=== PATIENT | female | born 1990 | race Caucasian/White ===

== ENCOUNTER 2019-10-28 16:41 | Observation (INO) | payer OTHER ==
[2019-10-28 18:38] LABS: ABS Eosinophils 0.1 10^3/ul (0-0.6); ABS Lymphocytes 1.4 10^3/ul (1.0-4.8); ABS Neutrophils 12.3 10^3/ul (1.5-7.7); Eosinophil % 0.5 %; Hematocrit 37 % (35-47); Hemoglobin 12.5 g/dL (12.0-16.0); Lymphocyte % 9.1 %; Mean Corpuscular HGB Conc 34 g/dL (31-36); Mean Corpuscular Hemoglobin 31 pg (27-31); Mean Corpuscular Volume 91 fL (80-97); Mean Platelet Volume 9.1 fL (7.4-10.4); Nucleated Red Blood Cells % 0.1; Platelet Count 180 10^3/uL (150-450); Red Blood Count 4.04 10^6 /uL (3.70-4.87); Red Cell Distribution Width 14 % (10-15); White Blood Count 14.8 10^3/uL (3.5-10.8)
[2019-10-28 18:55] LABS: ALT 10 U/L (7-52); AST 15 U/L (13-39); Albumin 3.6 g/dL (3.2-5.2); Albumin/Globulin Ratio 1.1 (1-3); Alkaline Phosphatase 55 U/L (34-104); Anion Gap 7 mmol/L (2-11); BUN/Creatinine Ratio 7.9 (8-20); Blood Urea Nitrogen 5 mg/dL (6-24); C Reactive Protein 22.51 mg/L (<8.01); CO2 Carbon Dioxide 25 mmol/L (22-32); Calcium 9.4 mg/dL (8.6-10.3); Chloride 104 mmol/L (101-111); EGFR African American 135.2 (>60); EGFR Non-African American 111.7 (>60); Globulin 3.3 g/dL (2-4); Glucose 92 mg/dL (70-100); Potassium 3.9 mmol/L (3.5-5.0); Sodium 136 mmol/L (135-145); Total Protein 6.9 g/dL (6.4-8.9)
--- NOTE | 2019-10-28 22:10 | ED ---
GI/ HPI - HPI Summary HPI Summary: Patient is a 29 y/o F who is 21 weeks presenting to [facility] with complaints of abdominal pain, nausea, and decreased appetite. She states that the Sx first onset "lightly" in the evening of 10/27/19. Sx worsened today, , but patient currently states that her Sx have improved in the past few hours. Abdominal pain was initially diffuse but has since localized to her RLQ. Vaginal bleeding is denied. On triage, pain is rated 6/10, nothing is noted to aggravate/alleviate Sx. She states that she has had previous abdominal cramping and one episode of vomiting during her , current Sx are noted to be dissimilar to these episodes. This is her first . Dr. Connor is OB. Past abdominal surgeries are denied. Patient's partner is present in the room. Home medications and allergies are reviewed. - History of Current Complaint Chief Complaint: EDAbdPain Time Seen by Provider: 10/28/19 22:05 Stated Complaint: 21 WKS PREG/ABD PAIN/NAUSEA PER PT Hx Obtained From: Patient Onset/Duration: Started Days Ago, Still Present Timing: Constant, Lasting Days Severity: Moderate Current Severity: Moderate Pain Intensity: 6 Location of Pain: RLQ Associated Signs and Symptoms: Positive: Nausea, Change in Appetite, Abdominal Pain Additional Signs & Symptoms: Negative: Vaginal Bleeding Aggravating Factor(s): Nothing Alleviating Factor(s): Nothing - Allergy/Home Medications Allergies/Adverse Reactions: Allergies Allergy/AdvReac Type Severity Reaction Status Date / Time No Known Allergies Allergy Verified 10/28/19 16:50 Home Medications: Home Medications NK [No Home Medications Reported] 10/28/19 [History Confirmed 10/28/19] PMH/Surg Hx/FS Hx/Imm Hx Sensory History: Denies: Hx Legally Blind, Hx Deafness Opthamlomology History: Denies: Hx Legally Blind EENT History: Denies: Hx Deafness Infectious Disease History: No Infectious Disease History: Denies: Traveled Outside the [place] in Last 30 Days - Family History Known Family History: Negative: Diabetes - Social History Alcohol Use: None Substance Use Type: Reports: None Smoking Status (MU): Never Smoked Tobacco Review of Systems Gastrointestinal: Other - pos - decreased appetite Positive: Abdominal Pain, Nausea Genitourinary: Other - neg - vaginal bleeding All Other Systems Reviewed And Are Negative: Yes Physical Exam - Summary Physical Exam Summary: Appearance: Well-appearing, Well-nourished, lying in bed comfortably Skin: Warm, dry, no obvious rash Eyes: sclera anicteric, no conjunctival pallor ENT: mucous membranes moist, pharynx appears normal Neck: Supple, nontender Respiratory: Clear to auscultation, no signs of respiratory distress Cardiovascular: Normal S1, S2. No murmurs. Normal distal pulses in tibial and radial bilaterally. Abdomen: Gravid with fundus just above the umbilicus, RLQ tenderness without guarding or rebound Musculoskeletal: Normal, Strength/ROM Intact Neurological: A&Ox3, awake and alert, mentation is normal, speech is fluent and appropriate Psychiatric: affect is normal, does not appear anxious or depressed Triage Information Reviewed: Yes Vital Signs On Initial Exam: Initial Vitals Temp Pulse Resp BP Pulse Ox 98.3 F 81 16 111/72 99 10/28/19 16:46 10/28/19 16:46 10/28/19 16:46 10/28/19 16:46 10/28/19 16:46 Vital Signs Reviewed: Yes Procedures - Sedation Patient Received Moderate/Deep Sedation with Procedure: No Diagnostics - Vital Signs Vital Signs Temp Pulse Resp BP Pulse Ox 10/28/19 19:48 96.1 F 70 18 107/70 100 10/28/19 18:13 98.8 F 77 16 122/80 100 10/28/19 16:46 98.3 F 81 16 111/72 99 - Laboratory Lab Results: Lab Results 10/28/19 10/28/19 Range/Units 18:21 18:21 WBC 14.8 H (3.5-10.8) 10^3/uL RBC 4.04 (3.70-4.87) 10^6 /uL Hgb 12.5 (12.0-16.0) g/dL Hct 37 (35-47) % MCV 91 (80-97) fL MCH 31 (27-31) pg MCHC 34 (31-36) g/dL RDW 14 (10-15) % Plt Count 180 (150-450) 10^3/uL MPV 9.1 (7.4-10.4) fL Neut % (Auto) 83.2 % Lymph % (Auto) 9.1 % [place] % (Auto) 7.0 % Eos % (Auto) 0.5 % Baso % (Auto) 0.2 % Absolute Neuts (auto) 12.3 H (1.5-7.7) 10^3/ul Absolute Lymphs (auto) 1.4 (1.0-4.8) 10^3/ul Absolute Monos (auto) 1.0 H (0-0.8) 10^3/ul Absolute Eos (auto) 0.1 (0-0.6) 10^3/ul Absolute Basos (auto) 0.0 (0-0.2) 10^3/ul Absolute Nucleated RBC 0.0 10^3/ul Nucleated RBC % 0.1 Sodium 136 (135-145) mmol/L Potassium 3.9 (3.5-5.0) mmol/L Chloride 104 (101-111) mmol/L Carbon Dioxide 25 (22-32) mmol/L Anion Gap 7 (2-11) mmol/L BUN 5 L (6-24) mg/dL Creatinine 0.63 (0.51-0.95) mg/dL Est GFR ( Amer) 135.2 (>60) Est GFR (Non-Af Amer) 111.7 (>60) BUN/Creatinine Ratio 7.9 L (8-20) Glucose 92 (70-100) mg/dL Calcium 9.4 (8.6-10.3) mg/dL Total Bilirubin 0.40 (0.2-1.0) mg/dL AST 15 (13-39) U/L ALT 10 (7-52) U/L Alkaline Phosphatase 55 (34-104) U/L C-Reactive Protein 22.51 H (<8.01) mg/L Total Protein 6.9 (6.4-8.9) g/dL Albumin 3.6 (3.2-5.2) g/dL Globulin 3.3 (2-4) g/dL Albumin/Globulin Ratio 1.1 (1-3) Lipase < 10 L (11.0-82.0) U/L Result Diagrams: 10/28/19 18:21 10/28/19 18:21 Lab Statement: Any lab studies that have been ordered have been reviewed, and results considered in the medical decision making process. - Ultrasound APPENDIX US Ultrasound Interpretation Completed By: Radiologist Summary of Ultrasound Findings: IMPRESSION: Findings consistent with inflamed appendix/acute appendicitis in right lower. quadrant. No periappendiceal fluid identified. THIS REPORT WAS REVIEWED BY DR. JUAREZ. Re-Evaluation - Re-Evaluation First Eval Re-Evaluation Time: 03:30 Comment: 0330 - Patient had complaints of pain, morphine 4 mg IV administered. GIGU Course/Dx - Course Course Of Treatment: Patient is a 29 y/o F who is 21 weeks presenting to [facility] with complaints of abdominal pain, nausea, and decreased appetite. She states that the Sx first onset "lightly" in the evening of 10/27/19. Sx worsened today, 10/28/19, but patient currently states that her Sx have improved in the past few hours. Abdominal pain was initially diffuse but has since localized to her RLQ. Vaginal bleeding is denied. Past abdominal surgeries are denied. Abdomen: Gravid with fundus just above the umbilicus, RLQ tenderness without guarding or rebound. 2212 - Patient's case was discussed with Dr. Walker, Dr. Walker recommends US. Surgery consult to be done. 2229 - Patient's case was discussed with Dr. Elaine. He agrees with US, defers to Dr. Walker's opinion on this case. Bloodwork obtained, abnormal values include WBC 14.8, absolute neuts 12.3, absolute monos 1, BUN 5, BUN/creatinine ratio 7.9, CRP 22.51, lipase < 10. UA showed 1+ ketones, trace leukocyte esterase, trace WBC and RBC, squamous epith cells present, 1+ bacteria. APPENDIX US IMPRESSION: Findings consistent with inflamed appendix/acute appendicitis in right lower. quadrant. No periappendiceal fluid identified. 2347 - Dr. Elaine prepping for surgery, nurse will let him know US shows appendicitis. 2350 - Dr. Walker was reached, she refers to Dr. Elaine' opinion. Patient started on Piperacillin sod/tazobactam sod 3.375 gm in 100 mls @ 200 mls/hr. She was given fluids, zofran 4 mg IV and morphine 4 mg IV as well. 0115 - Dr. Elaine in ED to evaluate the patient. He will not take the patient for surgery until the morning. He notes that OB will need to evaluate the patient before surgery. 0221 - Dr. Walker recommends Pelvic US. 0330 - Patient had complaints of pain, morphine 4 mg IV administered. Patient is signed out to Dr. Chance at 0700 10/29/19 shift change pending pelvic US. - Diagnoses Provider Diagnoses: Acute appendicitis complicating - Physician Notifications Discussed Care Of Patient With: Doris Walker Time Discussed With Above Provider: 22:12 Instructed by Provider To: Other - 2211 - Patient's case was discussed with Dr. Walker, Dr. Walker recommends US. Surgery consult to be done. 2229 - Patient's case was discussed with Dr. Elaine. He agrees with US. 2347 - Dr. Elaine prepping for surgery, nurse will let him know US shows appendicitis. 2350 - Dr. Walker was reached, she refers to Dr. Elaine' opinion. 0115 - Dr. Elaine in ED to evaluate the patient. He will not take the patient for surgery until the morning. He notes that OB will need to evaluate the patient before surgery. 0221 - Dr. Walker recommends Pelvic US. Discharge ED - Sign-Out/Discharge Documenting (check all that apply): Sign-Out Patient Signing out patient TO: Tuan Chance - Discharge Plan Condition: Stable Disposition: ADMITTED TO [facility] - Billing Disposition and Condition Condition: STABLE Disposition: Admitted to [facility] - Attestation Statements Document Initiated by Elvis: Yes Documenting Scribe: MYCHAL RIBEIRO Provider For Whom Elvis is Documenting (Include Credential): ROLANDO JUAREZ MD Scribe Attestation: IMYCHAL, scribed for ROLANDO JUAREZ MD on 10/30/19 at 0553. Scribe Documentation Reviewed: Yes Provider Attestation: The documentation as recorded by the MYCHAL beckham accurately reflects the service I personally performed and the decisions made by me, ROLANDO JUAREZ MD Status of Scribe Document: Viewed
[2019-10-28 23:16] LABS: Urine Appearance Clear; Urine Bilirubin Negative (Negative); Urine Blood Negative (Negative); Urine Color Yellow; Urine Glucose Negative (Negative); Urine Ketones 1+ (Negative); Urine Nitrite Negative (Negative); Urine Protein Negative (Negative); Urine Specific Gravity 1.004 (1.010-1.030); Urine Urobilinogen Negative (Negative)
[2019-10-28 23:20] LABS: Urine Bacteria 1+ (Absent); Urine Red Blood Cell Trace(0-2/hpf) (Absent); Urine Squamous Epithelial Cell Present (Absent); Urine White Blood Cell Trace(0-5/hpf) (Absent)
[2019-10-28] MEDS ORDERED: Piperacillin/Tazobac ADVAN(*) 3.375 GM in NS 0.9% 100 ML* 100 ML IVPB ONE (23:54)
[2019-10-28] MEDS ORDERED: NS 0.9% 1000 ML** 2,000 ML IV ONE (23:58)
[2019-10-28] MEDS ORDERED: Morphine 4 MG/ML VIAL (1 ml) 4 MG/ML VIAL IV ONE (23:58)
[2019-10-29] MEDS ORDERED: Ondansetron INJ* 2 MG/ML VIAL ONE (00:25)
[2019-10-29] MEDS ORDERED: Ondansetron INJ* 2 MG/ML VIAL IV ONE ×2 (00:26)
[2019-10-29] MEDS ORDERED: Morphine 4 MG/ML VIAL (1 ml) 4 MG/ML VIAL IV PRN (03:15)
--- NOTE | 2019-10-29 03:59 | CONS ---
CC: Frederick Connor MD * CONSULTATION REPORT: DATE OF CONSULT: 10/29/19 REASON FOR CONSULTATION: Acute appendicitis. HISTORY OF PRESENT ILLNESS: This is a 29-year-old female, 21 weeks , who presented to the emergency room with a day's history of abdominal pain with some localization to the right side. She denied diarrhea. She had some nausea but did not vomit. She had no fevers or chills. She slept poorly last night but did get up and go to work today. She left work because her pain was persisting and more severe. She called her keno writer / runner's office and was directed to the emergency room. In the emergency room, she was evaluated by staff. She was noted to have a mildly elevated white blood cell count of 14.8 and her C-reactive protein was mildly elevated at 22.5. She underwent an ultrasound, which was read as consistent with inflamed appendix/acute appendicitis in the right lower quadrant with no periappendiceal fluid identified. Surgical consult was requested. Prior to evaluating the patient, she did receive morphine. The patient reports that at this time she has no pain. PAST MEDICAL HISTORY: Thyroid nodule. PAST SURGICAL HISTORY: Myringotomy tubes as a child. MEDICATIONS: vitamins. ALLERGIES: None. FAMILY HISTORY: Reviewed and was noncontributory. SOCIAL HISTORY: Denies tobacco use or alcohol or drug use. She is . 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 REVIEW OF SYSTEMS: A 14-point review of systems was completed and significant for the above mentioned findings. Otherwise was negative. PHYSICAL EXAMINATION: Afebrile with a temperature of 98.3 on arrival. T-max is 98.8, pulse 66, respirations 17, blood pressure 98/59, O2 saturation 97% to 99% on room air. Head is normocephalic and atraumatic. Sclerae anicteric. Her mucous membranes are moist. She has no otorrhea or rhinorrhea. Her abdomen is without scars and it is nondistended. There is gravid uterus. There is mild tenderness in the right lower quadrant with no rebound or guarding. LABORATORY DATA: Laboratory data was reviewed, significant findings as above. IMAGING: Ultrasound images were reviewed. IMPRESSION: A 29-year-old female, 21 weeks with signs and symptoms and ultrasound concerning for possible acute appendicitis. At present, she is pain- free and asymptomatic. PLAN/RECOMMENDATIONS: I discussed the patient with Dr. Walker by phone. It is certainly possible that this represents an early appendicitis. I would want obstetric evaluation prior to deciding to bring her to the operating room. Pending this evaluation, she will receive antibiotics and IV fluids and will be kept n.p.o. I also discussed with the patient that surgical treatment of appendicitis typically can be managed laparoscopically; however, in patients this may not be possible. [id number]/[facility] #: [id number] [facility] HEALTHFatou
[2019-10-29] MEDS ORDERED: Piperacillin/Tazobac ADVAN(*) 3.375 GM in NS 0.9% 100 ML* 100 ML IVPB ONE (07:13)
--- NOTE | 2019-10-29 07:27 | ED ---
Progress - Progress Note Progress Note: The patient is a sign-out from Dr. Sancho Galan MD, to Dr. Tuan Chance MD, at change of shift at 0700 on 10/29/2019, pending Pelvis Ultrasound and disposition. ultrasound reveals single intrauterine gestation with a gestational age of 20 weeks 6 days with heart rate of [address] Webster from [facility] came to speak with the patient concerning need for surgery. He has cleared her for surgery, and the patient understands and agrees with the plan. Dr. Quick from surgery has spoken with the patient concerning the plan, and he is admitting the patient for surgery. - Results/Orders Results/Orders: Ultrasound Impression: Single intrauterine gestation with a gestational age of 20 weeks 6 days. heart activity is noted at 136 BPM. Limited survey. ED physician has reviewed this report. Re-Evaluation - Re-Evaluation First Eval Re-Evaluation Time: 07:35 Comment: Nurse Bella states that the patient is becoming hypotensive with sysolic reading in the 90s mmHg. We will administer 1L fluids. Course/Dx - Course Course Of Treatment: The patient is a sign-out from Dr. Sancho Galan MD, to Dr. Tuan Chance MD, at change of shift at 0700 on 10/29/2019, pending Pelvis Ultrasound and disposition. US Impression: Single intrauterine gestation with a gestational age of 20 weeks 6 days. heart activity is noted at [address] Webster from [facility] has cleared patient for surgery. Dr. Quick from surgery accepts the patient for admission for surgery. Patient understands and agrees with this plan. - Diagnoses Provider Diagnoses: Acute appendicitis complicating - Provider Notifications Discussed Care Of Patient With: Demetri Webster - [facility] Time Discussed With Above Provider: 07:30 Instructed by Provider To: Other - Dr. Webster spoke with the patient and has cleared her for surgery. Dr. Quick spoke with patient concerning the plan for surgery at 0900. Discharge ED - Sign-Out/Discharge Documenting (check all that apply): Patient Departure - Patient accepted for surgery by Dr. Quick., Receiving Sign-Out Receiving patient FROM: Sancho Galan - Patient is a sign-out from Dr. Sancho Galan MD, at 0700 on 10/29/2019, pending Pelvis Ultrasound and disposition. - Discharge Plan Condition: Stable Disposition: ADMITTED TO [facility] - Billing Disposition and Condition Condition: STABLE Disposition: Admitted to [facility] - Attestation Statements Document Initiated by Elvis: Yes Documenting Scribe: Tammi López Provider For Whom Elvis is Documenting (Include Credential): Dr. Tuan Chance MD Scribe Attestation: ITammi, scribed for Dr. Tuan Chance MD on 10/29/19 at 1851. Scribe Documentation Reviewed: Yes Provider Attestation: The documentation as recorded by the Tammi beckham accurately reflects the service I personally performed and the decisions made by me, Dr. Tuan Chance MD Status of Scribe Document: Viewed Procedures - Sedation Patient Received Moderate/Deep Sedation with Procedure: No
[2019-10-29] MEDS ORDERED: NS 0.9% 1000 ML** 1,000 ML IV ONE ×2 (07:40→10:13)
[2019-10-29] MEDS ORDERED: NS 0.9% 100 ML* 100 ML ONE (07:47)
--- NOTE | 2019-10-29 10:23 | PN ---
Progress Note - Progress Note Date of Service: 10/29/19 Note: 29 yo at 21 weeks with right sided abdominal pain/ NAUSEA AND ANOREXIA. Pt rpesented to Ed last night after not feeling well starting Sunday . It started with nausea and had progressed to right sided pain. No regular pain that comes and goes. No bleeding or leaking. Ultrasound of appendix in Er shows some changes consistent with appendicitis. Wbc elevated but within normal range for . Surgery evaluated and feel pt findings and presentation suspicious for appendicitis . U/s of is normal . I had a long discussion with pt and family regarding the pitfalls of diagnosis of appendicitis in . The risks of not diagnosing an appendicitis in are significant with potential for serious sequella . Discussed surgery risks are less barring any complications. Ct discussed and feel This carries longer term potential risks. Questions answered . I have discussed case with Dr Elaine and Dr Quick and they both agrees her case is suspicious for appendicitis. Based on this pt is scheduled to go to the OR this afternoon. She does not seem to be pending rupture so feel no need to expedite this case faster. She is 21 weeks so no particular need for efm . However would place toco if she describes regular contractions or has bleeding. I would check fhr pre and post operatively and observe a ltitle long than usual post operatively.This was discussed with Dr Quick and Dr Lyman.Call with any further questions. Marcio Webster MD
[2019-10-29] MEDS ORDERED: Famotidine IV* 10 MG/ML 2 ML (20 mg) IV ONE (11:47)
[2019-10-29] MEDS ORDERED: Buffered Lidocaine 1% SYRIN* 1 ML/SYRINGE INTRADERM ONE (11:47)
[2019-10-29] MEDS ORDERED: Ondansetron INJ* 2 MG/ML VIAL IV PRN ×2 (11:48→15:30)
[2019-10-29] MEDS ORDERED: Naloxone* 0.4 MG/ML 1 ML VIAL IV PRN (11:48)
[2019-10-29] MEDS ORDERED: Famotidine IV* 10 MG/ML 2 ML (20 mg) ONE (11:50)
[2019-10-29] MEDS ORDERED: Lactated Ringers 1000 ML Bag* 1,000 ML IV SCH (12:00)
[2019-10-29] MEDS ORDERED: Rocuronium* 10 MG/ML VIAL ONE (12:32)
[2019-10-29] MEDS ORDERED: KETAMINE HCL* 50 MG/ML 10 ML VIAL ONE (12:32)
[2019-10-29] MEDS ORDERED: fentaNYL* 50 MCG/ML 2 ML VIAL (100 MCG VIAL) ONE (12:32)
[2019-10-29] MEDS ORDERED: HYDROmorphone INJ* 0.5 MG/0.5 ML SYRINGE IV SLOW PU PRN (15:30)
[2019-10-29] MEDS ORDERED: oxyCODONE/Acetamin 5/325 MG* TAB PO PRN (15:30)
--- NOTE | 2019-10-29 15:30 | OP ---
Operative Report - Blank - Operative Report Date of Operation: 10/29/19 Note: OPERATIVE NOTE Pre-Operative Diagnosis:Acute appendicitis Post-Operative Diagnosis:Acute suppurative appendicitis Procedure:Laparoscopic appendectomy Surgeon: Aniceto Quick MD Fab[employer] And Material Cutter:RAOUL Haywood Anesthesia: Local with General with Kountze IVF:1 liter crystalloid EBL:min Specimen:appendix Drain: none Wound Class:3 Findings: Acute appendicitis, no perforation or abscess TO PACU
[2019-10-29] MEDS: fentaNYL* 50 MCG/ML 2 ML VIAL (100 MCG VIAL) IV PRN ×2 (15:46→16:10)
[2019-10-29] MEDS: NS 0.9% 1000 ML** 1,000 ML IV SCH (17:15)
[2019-10-29] MEDS: Piperacillin/Tazobactam VIAL*) 3.375 GM in NS 0.9% 100 ML* 100 ML IVPB SCH (17:15)
[2019-10-29] MEDS: Acetaminophen TAB* 325 MG PO PRN (20:20)
--- NOTE | 2019-10-29 23:42 | OP ---
CC: [facility]; Dr. Connor * DATE OF OPERATION: 10/29/19 - ROOM #331 DATE OF : 89 SURGEON: Juan Quick MD. FOOD AND BEVERAGE CHECKER: HARPER Koenig. ANESTHESIOLOGIST: Dr. Esparza. ANESTHESIA: Local with general. PRE-OP DIAGNOSIS: Acute appendicitis. POST-OP DIAGNOSIS: Acute suppurative appendicitis. OPERATIVE PROCEDURE: Laparoscopic appendectomy. ESTIMATED BLOOD LOSS: Minimal. WOUND CLASSIFICATION: III. IV FLUIDS: 1 L of crystalloid. SPECIMENS: Appendix. DRAINS: None. BRIEF HISTORY: Ms. Nicole Gupta is a 29-year-old woman who is approximately 22-1/2 weeks , presented to the emergency room after she developed generalized abdominal discomfort. They became more localized in the right lower quadrant. She has noted a mild elevation in her white blood cell count but no fever. On physical exam, she had tenderness in the right mid to right lower quadrant of her abdomen. An ultrasound was obtained which showed findings consistent with acute appendicitis without evidence of abscess or fluid. She was seen in both surgical and obstetrical consultation. Video ultrasound showed no acute abnormalities with a viable fetus; and, after discussion between Surgery and OB as well as ER physician and review of the ultrasound and her clinical findings, it was recommend that she undergo a laparoscopic appendectomy for what appeared to be acute appendicitis. I discussed the procedure with the patient and her and the importance of an early diagnosis of acute appendicitis in patient, also stressing that the best care for the fetus is optimal care of the mother and thus recommend early laparoscopy with the understanding that the appendix may be normal. The procedure was discussed in detail once again, and the risks of, but not limited to, bleeding, infection, intraabdominal abscess formation, injury to peritoneal and retroperitoneal structures, possibility of an open procedure, possibility of distress with loss/demise, early pre-term labor, vaginal bleeding and the risk of anesthesia and blood clots were all explained. She understands and gives her consent to proceed. FINDINGS: Acute suppurative appendicitis without evidence of perforation, gangrene, or abscess. DESCRIPTION OF PROCEDURE: Written informed consent was obtained, the abdomen was marked with indelible ink, and preoperative antibiotics were administered. The patient was taken to the operating room, placed in the supine position in the partial left lateral decubitus position. Sequential compression devices and warming blanket were applied. General anesthesia was administered. The abdomen was prepped and draped in the usual sterile fashion. Time-out verification was completed. Initially a vertical incision was made approximately 3 to 4 cm above the umbilicus at the midline. The peritoneal cavity was entered under direct vision. A 12-mm blunt port was inserted and the abdomen was insufflated to 12 mmHg. Under direct vision, a right upper quadrant 5-mm port was placed and a single 5- mm lower midline of the abdomen port was placed under direct vision with care not to injure the uterus. The uterus was visualized. It was the size as to be expected with no abnormality. There was no evidence of free intraabdominal fluid or pus. Liver was unremarkable. I did not visualize the gallbladder well. Attention was turned to the right lower quadrant. There was some peritoneal attachments from the cecum to the lateral and anterior abdominal wall, which were taken down using LigaSure. I identified the appendix. It was markedly edematous and suppuratively inflamed and quite indurated. In addition, it was adherent to the retroperitoneum with peritoneal attachments and somewhat lying in a corkscrew type orientation. I was able to identify the mesoappendix and this was divided sequentially along with the peritoneal attachments using the LigaSure to follow the appendix from the tip down to the base of the cecum. The cecum and terminal ileum as well as the right colon appeared to be unremarkable. The base of the appendix was normal as well. A noonan load of a 45-mm EndoGIA stapler was then used to divide the appendix at its base and this was placed in Endo-Catch bag and brought out through the umbilical incision. Staple line was intact and hemostasis was assured. The right lower quadrant was irrigated. There was no evidence of bleeding or fluid. I did not visualize the right ovary well as this was somewhat obscured by the uterus down in the pelvis. All ports were then removed under direct vision of the camera. The supraumbilical fascia was closed with interrupted 0 Vicryl suture. The skin was approximated at all 3 incisions with subcuticular 4-0 Vicryl suture. Steri- Strips were applied. The patient tolerated the procedure well and was taken to the recovery room in stable condition. [id number]/[facility] #: [id number] MTDFatou
[2019-10-30] MEDS: NS 0.9% 1000 ML** 1,000 ML IV SCH (01:37)
[2019-10-30] MEDS: Piperacillin/Tazobactam VIAL*) 3.375 GM in NS 0.9% 100 ML* 100 ML IVPB SCH (01:38)
[2019-10-30] MEDS: Acetaminophen TAB* 325 MG PO PRN (07:15)
[2019-10-30 07:25] VITALS: BP 97/58
--- NOTE | 2019-10-30 09:03 | PN ---
Progress Note - Progress Note Date of Service: 10/30/19 Note: S: POD #1. Seen with and examined by Dr. Quick. Feels well. Some pain, but doing well with Tylenol only. Had some cramping last pm which subsided. No contractions. Matthew diet. O: Vital Signs - 8 hr 10/30/19 10/30/19 10/30/19 03:05 07:11 07:19 Temperature 98.4 F 98.5 F Pulse Rate 72 79 Respiratory 18 18 18 Rate Blood Pressure 94/57 97/58 (mmHg) O2 Sat by Pulse 94 96 Oximetry Intake and Output Last 24 Hours 10/28/19 10/29/19 10/30/19 10/31/19 06:59 06:59 06:59 06:59 Intake Total 2100 5735 Output Total 2800 Balance 2100 2935 Weight 152 lb 175 lb 3.2 oz Intake: IV Fluids 2100 4555 ABX - ZOSYN 75 LR 1400 NS (0.9%) 980 Oral 1180 Output: Urine 2800 Other: Estimated Void Medium # Voids 1 Gen: sitting up in chair; appears comfortable Abd: lap sites ok; steris intact; soft; mild tenderness A: s/p lap appy for acute nonruptured appendicitis, doing well P: ok for d/c; no further abx needed; instructions reviewed re: diet, activity and wound care. Office f/u next wk.
--- NOTE | 2019-10-30 10:29 | DS ---
CC: Dr. Frederick Connor * DATE OF ADMISSION: 10/29/2019. DATE OF DISCHARGE: 10/30/2019. ATTENDING SURGEON: Dr. Juan Quick * (PERRI Matias dictating). HOSPITAL COURSE: Please refer to admission history and physical and operative note for details. The patient is a 21 week female who presented with signs and symptoms, as well as ultrasound consistent with acute appendicitis. She was taken to the operating room by Dr. Quick on 10/29/2019 and underwent laparoscopic appendectomy for acute nonruptured appendicitis. She was seen by the OB Department. monitoring was unremarkable. She has had an otherwise uneventful postoperative course (see separate process note from the same date). She is tolerating diet well and pain was well-controlled with Tylenol only. Instructions were reviewed regarding diet, wound care, and activity. She has a follow-up appointment with our office on 11/05/2019. She declined offer for opioid analgesic. DISCHARGE DISPOSITION AND CONDITION: She is discharged to home in good condition. PERRI MATIAS [id number]/[facility] #: [id number] MTDD
--- NOTE | 2019-10-30 11:40 | PN ---
Progress Note - Progress Note Date of Service: 10/30/19 SOAP: Subjective: Doing well-minimal incisional pain No vaginal bleeding or feeling of uterine contractions Tolerating liquids and ambulating in halls Objective: Temp Pulse Resp BP Pulse Ox 98.5 F 79 18 97/58 96 10/30/19 07:11 10/30/19 07:11 10/30/19 07:19 10/30/19 07:11 10/30/19 07:11 Intake & Output 10/28/19 10/29/19 10/30/19 10/31/19 06:59 06:59 06:59 06:59 Intake Total 2100 5735 1085 Output Total 2800 Balance 2100 2935 1085 Weight 152 lb 175 lb 3.2 oz Intake: IV Fluids 2100 4555 980 ABX - ZOSYN 75 LR 1400 NS (0.9%) 980 980 IVPB 105 ABX - ZOSYN 105 Oral 1180 Output: Urine 2800 Other: Estimated Void Medium # Voids 1 PEX: Comfortable in chair Lungs clear Abd is , incisions CDI Assessment: S/P lap appy for acute appendicitis --22-23 weeks--no signs of contractions, no bleeding or labor Plan: D/C home No further antibiotics needed Advance diet OB and surgical follow up as outpatient Instructions given
== END 2019-10-30 10:35 | disposition home or self-care (01) ==
LOC: ED 16:41 → SSU 10-29 15:30
PROVIDERS: ADMIT Surgery; ATTEND Surgery
DX: O99.612 Diseases of the digestive system complicating pregnancy, second trimester (principal); K37 Unspecified appendicitis; Z3A.21 21 weeks gestation of pregnancy; Z86.39 Personal history of other endocrine, nutritional and metabolic disease; R63.0 Anorexia
CPT/HCPCS: 36415; 76705; 76815; 80053; 81003; 81015; 83690; 85025; 86140; 87086; 88304; 96361; 96365; 96366; 96375; 96376; 99285; A9270-GY; C1776; G0378; J2270; J2405; J2543; J3010

== ENCOUNTER 2020-03-16 14:12 | Inpatient (IN) | payer OTHER ==
[2020-03-16] MEDS ORDERED: Buffered Lidocaine 1% SYRIN 1 ml INTRADERM ONE (15:15)
[2020-03-16] MEDS ORDERED: Lactated Ringers 1000 ml BAG 1,000 ML IV ONE (15:15)
[2020-03-16 15:36] LABS: Hematocrit 39 % (35-47); Hemoglobin 13.3 g/dL (12.0-16.0); Mean Corpuscular HGB Conc 34 g/dL (31-36); Mean Corpuscular Hemoglobin 31 pg (27-31); Mean Corpuscular Volume 90 fL (80-97); Mean Platelet Volume 12.2 fL (7.4-10.4); Platelet Count 135 10^3/uL (150-450); Red Cell Distribution Width 14 % (10-15); White Blood Count 7.9 10^3/uL (3.5-10.8)
[2020-03-16] MEDS: Oxytocin in LR 20 UNITS/1,000 ML BAG IVPB SCH (15:49)
[2020-03-16] MEDS ORDERED: Lactated Ringers 1000 ml BAG 1,000 ML IV SCH (16:00)
[2020-03-16 16:16] LABS: ABS Lymphocytes 1.7 10^3/ul (1.0-4.8); ABS Monocytes 0.7 10^3/ul (0-0.8); Eosinophil % 0.6 %; Lymphocyte % 21.3 %; Nucleated Red Blood Cells % 0.1
[2020-03-16 16:22] LABS: Urine Benzodiazepine Screen None Detected (None Detect); Urine Opiates Screen None Detected (None Detect)
[2020-03-17] MEDS ORDERED: Tranexamic Acid 1,000 MG/10 ML SDV ONE (00:42)
[2020-03-17] MEDS ORDERED: Carboprost Tromethamine 250 mcg 1 ml VIAL ONE (00:43)
[2020-03-17] MEDS ORDERED: Dibucaine 1% OINT 28.35 GM TUBE PR PRN (01:16)
[2020-03-17] MEDS ORDERED: Carboprost Tromethamine 250 mcg 1 ml VIAL IM ONE (01:16)
[2020-03-17] MEDS ORDERED: Methylergonovine 0.2 mg AMPULE 1 ml AMP IM ONE (01:16)
[2020-03-17] MEDS ORDERED: Witch Hazel PAD JAR TOPICAL PRN (01:16)
[2020-03-17] MEDS ORDERED: Glycerin ADULT 2.4 gm SUPP PR PRN (01:16)
[2020-03-17] MEDS ORDERED: Lactated Ringers 1000 ml BAG 1,000 ML IV SCH (02:00)
[2020-03-17] MEDS: Oxytocin in LR 20 UNITS/1,000 ML BAG IVPB SCH (04:32)
[2020-03-17] MEDS ORDERED: Oxytocin 10 UNITS/ML 1 ML VIAL ONE (05:10)
[2020-03-17] MEDS ORDERED: Lidocaine 1% VIAL 10 MG/ML VIAL ONE (05:11)
[2020-03-17 06:08] LABS: ABS Monocytes 1.1 10^3/ul (0-0.8); Hematocrit 36 % (35-47); Hemoglobin 12.1 g/dL (12.0-16.0); Lymphocyte % 5.5 %; Mean Corpuscular HGB Conc 34 g/dL (31-36); Mean Corpuscular Hemoglobin 31 pg (27-31); Mean Corpuscular Volume 91 fL (80-97); Mean Platelet Volume 11.6 fL (7.4-10.4); Platelet Count 117 10^3/uL (150-450); Red Blood Count 3.95 10^6 /uL (3.70-4.87); Red Cell Distribution Width 14 % (10-15)
[2020-03-18 07:23] LABS: ABS Basophils 0.1 10^3/ul (0-0.2); ABS Eosinophils 0.1 10^3/ul (0-0.6); ABS Lymphocytes 2.1 10^3/ul (1.0-4.8); ABS Monocytes 1.1 10^3/ul (0-0.8); Eosinophil % 0.6 %; Hematocrit 29 % (35-47); Hemoglobin 10.1 g/dL (12.0-16.0); Lymphocyte % 16.6 %; Mean Corpuscular HGB Conc 34 g/dL (31-36); Mean Corpuscular Hemoglobin 31 pg (27-31); Mean Corpuscular Volume 92 fL (80-97); Mean Platelet Volume 10.7 fL (7.4-10.4); Platelet Count 112 10^3/uL (150-450); Red Blood Count 3.21 10^6 /uL (3.70-4.87); Red Cell Distribution Width 14 % (10-15); White Blood Count 12.5 10^3/uL (3.5-10.8)
[2020-03-18 07:52] VITALS: BP 111/70
[2020-03-18] MEDS ORDERED: RHO D Immune Globulin (HUMAN) 300 MCG = 1,500 I.U. INJ IM ONE (11:39)
== END 2020-03-18 12:50 | disposition home or self-care (01) | DRG 806 ==
LOC: MCHOBOUT 14:12 → MCHOB 15:17
PROVIDERS: ADMIT Obstetrics & Gynecology; ATTEND Obstetrics & Gynecology